=== PATIENT | female | born 1965 | race Caucasian/White ===

== ENCOUNTER → 2017-05-23 | Outpatient (CLI) | payer OTHER ==
--- NOTE | 2017-05-23 21:01 | MR ---
MRI CERVICAL SPINE: CLINICAL HISTORY: Neck pain and numbness per order. Headaches with neck pain radiating down right arm per patient. TECHNIQUE: Multiplanar, multisequence imaging of the cervical spine is performed without IV contrast. COMPARISON: Cervical spine x-ray February 25, 2011. FINDINGS: Sagittal images of the cervical spine show the craniocervical junction to appear within nor mal limits. The cervical and upper thoracic spinal cord is normal in course, caliber, and signal. V ertebral alignment is straightened. The vertebral body heights are normal. There is fairly moderate disc space narrowing with posterior disc herniations effacing anterior thecal sac at C4-C5 and C5-C6 levels on sagittal images. The bone marrow signal intensity is within normal limits. No significant s purring is seen. Sagittal images show lobulated 1.3 cm mucous retention cyst or polyp in inferior rig ht maxillary sinus on image #13. Axial images show the C2-C3 and C3-C4 levels to appear within normal limits. Axial images at C4-C5 level show broad-based left paracentral/foraminal disc protrusion effacing ante rolateral thecal sac up to ventral surface of spinal cord which is flattened and causing moderate to severe left-sided neural foraminal narrowing. There is mild to moderate right-sided neural foraminal narrowing due to smaller right foraminal disc protrusion component. Axial images at the C5-C6 level show lobulated broad-based posterior disc protrusion causing advanced right-sided neural foraminal narrowing on axial image 22. There is effacement of the anterolateral t hecal sac up to ventral surface of spinal cord which is flattened. There is moderate left-sided neura l foraminal narrowing felt present. Axial images at C6-C7 level show smaller left paracentral disc protrusion effacing anterolateral thec al sac on axial image 14, bilateral neural foramina are patent. Axial images at C7-T1 level are felt within normal limits. There is scattered nodularity throughout the thyroid including nodule approaching near 1 cm near left isthmus on axial image 4. IMPRESSION: 1. Straightening of cervical spine with degenerative changes C4-C5 and C5-C6 level causing significan t spinal canal effacement or stenosis but no abnormal cord signal currently and significant bilateral neural foraminal narrowing as detailed above. 2. Scattered thyroid nodules. Follow-up thyroid ultrasound is advised to further evaluate and charact erize.
== END | disposition home or self-care (01) ==
LOC: RADMRIMAIN 17:57
PROVIDERS: ATTEND Physician Assistant
DX: M99.71 Connective tissue and disc stenosis of intervertebral foramina of cervical region (principal); M47.22 Other spondylosis with radiculopathy, cervical region
CPT/HCPCS: 72141

== ENCOUNTER → 2017-06-26 | Outpatient (CLI) | payer OTHER ==
[2017-06-26 07:32] LABS: EKG EKG PERFORMED
[2017-06-26 07:51] LABS: Appearance,Urine Cloudy (Clear); Bacteria,Urine Moderate /hpf; Bilirubin,Urine Negative (Negative); Glucose,Urine (UA) Negative (Negative); Ketones,Urine Negative (Negative); Leukocyte Esterase,Urine Negative (Negative); Mucus,Urine Occasional /hpf; Nitrite,Urine Negative (Negative); Particle Count 12676; Protein,Urine Trace (Negative); RBC,Urine 2 /hpf (0-5); Specific Gravity,Urine 1.025 (1.001-1.035); Squamous Epithelial Cell,Urine 10 /hpf (0-4); UA Billing (MACRO vs. MICRO) MICRO; Urobilinogen,Urine <2.0 mg/dL (<2.0); WBC,Urine 5 /hpf (0-5)
[2017-06-26 07:54] LABS: Partial Thromboplastin Time 26.2 sec (22.0-30.0); Prothrombin Time 10.4 sec (9.0-12.0)
[2017-06-26 07:56] LABS: Basophils # (A) 0.1 k/uL (0-0.2); Basophils % (A) 1 %; CH 32.2; CHCM 33.8; Eosinophils # (A) 0.1 k/uL (0-0.7); Eosinophils % (A) 1 %; HCT 43.4 % (34.0-46.0); HDW 2.44; HGB 14.1 gm/dL (11.4-16.0); Luc % (Auto) 3; Lymphocytes # (A) 1.2 k/uL (1.0-4.8); Lymphocytes % (A) 20 %; MCH 31.2 pg (25.0-35.0); MCHC 32.5 g/dL (31.0-37.0); MCV 95.8 fL (80.0-100.0); Mean Platelet Volume 7.6; Monocytes # (A) 0.3 k/uL (0-1.0); Monocytes % (A) 5 %; Neutrophils # (A) 4.2 k/uL (1.3-7.7); Neutrophils % (A) 70 %; RBC 4.53 m/uL (3.80-5.40); RDW 14.7 % (11.5-15.5); WBC (Perox) 6.15
--- NOTE | 2017-06-26 07:56 | XR ---
EXAMINATION TYPE: XR chest 2V DATE OF EXAM: 06/26/2017 COMPARISON: NONE TECHNIQUE: PA and lateral views submitted. HISTORY: Preop for back surgery FINDINGS: The lungs are clear and there is no pneumothorax, pleural effusion, or focal pneumonia. IMPRESSION: 1. No acute process.
[2017-06-26 08:20] LABS: Anion Gap 12 mmol/L; Blood Urea Nitrogen 13 mg/dL (7-17); Calcium 9.6 mg/dL (8.4-10.2); Carbon Dioxide 25 mmol/L (22-30); Chloride 104 mmol/L (98-107); Glucose 117 mg/dL (74-99); Non-African American GFR(MDRD) >60 (>60 ml/min/1.73 sqM); Potassium 4.1 mmol/L (3.5-5.1); Sodium 141 mmol/L (137-145)
== END | disposition home or self-care (01) ==
LOC: LABPAT 07:01
PROVIDERS: ATTEND Orthopaedic Surgery Orthopaedic Surgery of the Spine
DX: Z01.810 Encounter for preprocedural cardiovascular examination (principal); Z01.818 Encounter for other preprocedural examination; M48.02 Spinal stenosis, cervical region; E04.1 Nontoxic single thyroid nodule; I45.81 Long QT syndrome
CPT/HCPCS: 71020; 80048; 81001; 83735; 84436; 84439; 84443; 85025; 85610; 85730; 93005

== ENCOUNTER → 2017-07-02 | Outpatient (CLI) | payer OTHER ==
--- NOTE | 2017-07-02 10:13 | ECHOF ---
Referral Reason:R94.31 [facility] ekg I45.81 lung qt syndrome MEASUREMENTS -------- HEIGHT: 162.6 cm WEIGHT: 81.6 kg BP: IVSd: 1.0 cm (0.6 - 1.1) LVIDd: 4.0 cm (3.9 - 5.3) LVPWd: 1.1 cm (0.6 - 1.1) IVSs: 1.5 cm LVIDs: 2.2 cm LVPWs: 1.6 cm Ao Diam: 2.6 cm (2.0 - 3.7) AV Cusp: 2.0 cm (1.5 - 2.6) LA Diam: 2.9 cm (2.7 - 3.8) MV EXCURSION: 10.022 mm (> 18.000) MV EF SLOPE: 126 mm/s (70 - 150) EPSS: 0.6 cm MV E Oz: 0.79 m/s MV DecT: 191 ms MV A Oz: 0.77 m/s MV E/A Ratio: 1.03 RAP: 5.00 mmHg RVSP: 27.74 mmHg FINDINGS -------- Sinus rhythm. This was a technically good study. The left ventricular size is normal. Left ventricular wall thickness is normal. Overall left ventricular systolic function is normal with, an EF between 55 - 60 %. The right ventricle is normal in size and function. The left atrium is normal in size. The right atrium is normal in size. The aortic valve is trileaflet, and appears structurally normal. No aortic stenosis or regurgitation. There is trace mitral regurgitation. Trace tricuspid regurgitation present. The right ventricular systolic pressure, as measured by Doppler, is 27.74mmHg. Pulmonic valve appears structurally normal. The aortic root size is normal. The pericardium is normal. CONCLUSIONS -------- 1. Sinus rhythm. 2. There is trace mitral regurgitation. 3. Trace tricuspid regurgitation present. 4. The right ventricular systolic pressure, as measured by Doppler, is 27.74mmHg. 5. Pulmonic valve appears structurally normal. 6. The aortic root size is normal. 7. The pericardium is normal. 8. This was a technically good study. 9. The left ventricular size is normal. 10. Left ventricular wall thickness is normal. 11. Overall left ventricular systolic function is normal with, an EF between 55 - 60 %. 12. The right ventricle is normal in size and function. 13. The left atrium is normal in size. 14. The right atrium is normal in size. 15. The aortic valve is trileaflet, and appears structurally normal. No aortic stenosis or regurgitation. [employer] SPECIALIST: Ana Cristina Wyatt RDCS
--- NOTE | 2017-07-02 11:31 | NM ---
EXAMINATION TYPE: NM stress cardiolite complete DATE OF EXAM: 07/02/2017 COMPARISON: NONE HISTORY: Abnormal EKG and long QT syndrome per order. TECHNIQUE: After the intravenous administration of 11.29 mCi Tc 99m Sestamibi - Rest images obtained 60 minutes post injection. The patient exercised using a TIFFANY protocol and 1 minute prior to peak exercise was injected with 28.3 mCi Tc 99m Sestamibi - Stress images obtained 30 minutes post inject ion. FINDINGS: Targeted heart rate was achieved during performance of the study. Review of stress and rest SPECT siobhan ges demonstrates no distinct perfusion abnormality. Gated analysis shows normal wall motion with an estimated left ventricular ejection fraction of 64 %. IMPRESSION: No scintigraphic evidence for reversible ischemia
--- NOTE | 2017-07-02 17:31 | EST ---
EXERCISE STRESS Dr. Bridges dictating the 2 cardiac stress test for the patient Vaishali 1. MMODL / IJN: [id number] /
--- NOTE | 2017-07-02 18:01 | EST ---
EXERCISE STRESS DATE OF SERVICE: 07/02/17. TYPE OF REPORT: Exercise stress test. INDICATIONS: Abnormal EKG. BASELINE HEART RATE: 72. BASELINE BLOOD PRESSURE: 135/78. MAXIMUM HEART RATE: 152. MAXIMUM BLOOD PRESSURE: 174/75 85% MPHR 143 100% MPHR 168. METS: 8.7. MAXIMUM STAGE REACHED: 3. TOTAL EXERCISE TIME: 7:15 minutes RESULTS: Baseline heart rate 72 beats per minute. Baseline blood pressure 135/78 mmHg. Baseline 12 lead ECG showed sinus rhythm with normal ST segments. Normal HI interval. Patient exercised on a Joshua protocol for 7 minutes 15 seconds achieving a peak heart rate of 148 beats per minute. Normal blood pressure response to exercise. There was an upsloping ST depression which became a horizontal ST depression of about 2 mm in the inferior lateral precordial leads. The patient did not experience any symptoms. No arrhythmias noted. IMPRESSION: Abnormal stress test with 2 mm horizontal depression during recovery without any symptoms. Normal heart rate and blood pressure response to exercise. Average exercise capacity of 7.5 minutes, 8.7 mets achieved, 90% of predicted maximum heart rate achieved. MMODL / IJN: [id number] /
== END | disposition home or self-care (01) ==
LOC: RADNMMAIN 08:22
PROVIDERS: ATTEND Family Medicine
DX: R94.39 Abnormal result of other cardiovascular function study (principal); I45.81 Long QT syndrome
CPT/HCPCS: 93017; 93306; 78452; A9500

== ENCOUNTER 2017-07-04 06:57 | Inpatient (IN) | payer OTHER ==
[2017-06-27 11:45] VITALS: BMI 30.9
[~2017-07-04 06:57] MED LIST: BACITRACIN 50,000 UNIT, POLYMYXIN B 500,000 UNIT in SODIUM CHLORIDE 0.9% IRRIGATIO 1,00... IRRIGATION ONE; HYDROmorphone 1 MG/ML 1 ML SYRINGE IVP PRN; ceFAZolin 2 GM in SODIUM CHLORIDE 0.9% 100 ML IVPB ONE; fentaNYL (PF) 50 MCG/ML 2 ML AMP IV PRN
[2017-07-04] MEDS: LACTATED RINGERS 1,000 ML IV SCH ×2 (07:40→21:10)
[2017-07-04] MEDS ORDERED: LIDOCAINE 1% 20 ML VIAL (10MG/ML) FOR IV START INTRADERMA ONE (07:40)
[2017-07-04] MEDS ORDERED: ONDANSETRON 4 MG/2 ML VIAL IVP ONE (07:50)
[2017-07-04] MEDS ORDERED: SUCCINYLCHOLINE CHLORIDE 100 MG/5 ML SYR IV ONE (08:28)
[2017-07-04] MEDS ORDERED: PHENYLEPHRINE-0.9% NACL SYG 1 MG/10 ML SYRINGE ONE (08:28)
[2017-07-04] MEDS ORDERED: DEXAMETHASONE SOD PHOS (MDV) 100 MG/10 ML VIAL ONE (08:28)
[2017-07-04] MEDS ORDERED: PROPOFOL 10 MG/ML 20 ML VIAL IV ONE (08:28)
[2017-07-04] MEDS ORDERED: HYDROmorphone (PF) 1 MG/ML ONE (08:28)
[2017-07-04] MEDS ORDERED: MIDAZOLAM 2 MG/2 ML VIAL ONE (08:28)
[2017-07-04] MEDS ORDERED: fentaNYL (PF) 50 MCG/ML 2 ML AMP ONE (08:28)
[2017-07-04] MEDS ORDERED: ePHEDrine SULFATE/0.9% NACL/PF 50 MG/5 ML SYRINGE IV ONE (08:28)
[2017-07-04] MEDS ORDERED: LIDOCAINE 1% INJ 10MG/ML (20 ML MDV) ONE (08:28)
[2017-07-04] MEDS ORDERED: LIDOCAINE 0.5%-EPI 1:200,000 50 ML VIAL SQ ONE (09:06)
[2017-07-04] MEDS ORDERED: GELATIN SPONGE,ABSORB (LARGE) 1 EACH SPONGE TOPICAL ONE (09:12)
[2017-07-04] MEDS ORDERED: THROMBIN (BOVINE) 5,000 UNIT VIAL TOPICAL ONE (09:13)
--- NOTE | 2017-07-04 09:46 | XR ---
EXAMINATION TYPE: XR cervical spine 1V DATE OF EXAM: 07/04/2017 COMPARISON: NONE HISTORY: Intraoperative localization TECHNIQUE: Crosstable lateral view cervical spine Localization device is at the anterior C5-6 disc space.
[2017-07-04] MEDS ORDERED: LACTATED RINGERS 1,000 ML IV ONE (10:28)
--- NOTE | 2017-07-04 10:36 | XR ---
EXAMINATION TYPE: XR cervical spine 1V DATE OF EXAM: 07/04/2017 COMPARISON: NONE HISTORY: Postoperative evaluation TECHNIQUE: Crosstable lateral view of the cervical spine submitted. FINDINGS: Changes of ACDF are noted at C4-5 and C5-6. Anterior fixation plate and screws are in place . Intervertebral body stabilizer is noted. Alignment is anatomic. IMPRESSION: Postoperative alignment is felt to be anatomic.
[2017-07-04] MEDS ORDERED: DIAZEPAM 5 MG TAB PO PRN (10:42)
[2017-07-04] MEDS ORDERED: MAGNESIUM HYDROXIDE 2,400 MG/10 ML CUP PO PRN (10:42)
[2017-07-04] MEDS ORDERED: BENZOCAINE/MENTHOL LOZENG 1 EACH LOZENGE MUCOUS MEM PRN (10:42)
--- NOTE | 2017-07-04 10:42 | P.OP ---
Date of Procedure: 07/04/17 Preoperative Diagnosis: Severe cervical stenosis C4 5 C5 6 Right upper extremity radiculopathy with weakness Herniated nucleus pulposus C4 5 C5 6 Degenerative disc disease C4 5 C5 6 Postoperative Diagnosis: Same Anesthesia: GETA Pathology: none sent Condition: stable Disposition: PACU Description of Procedure: BRIEF OPERATIVE NOTE Preoperative Diagnosis:Severe cervical stenosis C4 5 C5 6, herniated nucleus pulposis C4 5 C5 6, right upper extremity radiculopathy with weakness, neck pain , degenerative disc disease Postoperative Diagnosis: Same Procedure: Anterior cervical decompression with discectomy and fusion C4 5 C5 6 Placement of interbody graft C4 5 C5 6 Application of anterior cervical plate C4 5 6 Surgeon: Dr. Salmon Sausage Cutter: Ede FERREIRA who is present throughout the entire the case persistence during positioning, dissection, exposure, visualization, and all crucial elements of the case as well as closure. Anesthesia: General anesthesia per Dr. Grullon Estimated blood loss: Approximately 75 mL Complications: None apparent Components implanted: K2M [place] anterior cervical plate system with Vikos interbody allograft bone graft and 1 mL of DBX bone putty Disposition: To recovery room in good stable condition. OPERATIVE INDICATIONS The patient has had long-standing issues in their neck and upper extremities. She is having worsening symptoms particularly at her right upper extremity with pain and weakness. She is found have disc herniation C4 5 and C5 6 with severe stenosis which correlated well with her neck and upper extremity radiculopathy. The patient has been through conservative treatment. She is not having any prolonged benefit despite aggressive conservative treatment. She was being affected her daily activities and work. We discussed various treatment options including surgery, and the patient wishes to proceed with surgery We discussed the risk, patient's alternatives and benefits of surgery including but not limited to, risk of bleeding risk of infection, risk of need for further surgery , risk of decreased, loss of motion, muscle function, malunion nonunion, hardware failure, nerve damage, paralysis, heart attack, and . OPERATIVE SUMMARY After discussing all the risks, patient alternatives and benefits at length, the patient elected to proceed with surgical intervention, signed informed consent, and presented for their procedure. The patient was seen and examined in the preoperative holding area and the surgical site was marked. The patient was given antibiotics and brought to the operating room. The patient was positioned on the operating room table in a supine position being careful to pad any bony prominences and pressure points. The patient was sedated and intubated by anesthesia in standard fashion. Once the airway and C- spine were stabilized the patient's arms were padded and tucked at her side, with her shoulders gently taped. The head was placed in a donut pad with the neck in good neutral alignment and position. We were careful to maintain the patient's cervical spine and good neutral alignment and position throughout. The patient was prepped and draped in a normal standard fashion. An appropriate timeout and keystone protocol performed. We were able to proceed with the surgery. The local wound area was infiltrated with local anesthetic on the right at C5. An incision was made transversely approximately 2-1/2 cm over the appropriate levels at C5. Dissection was taken down subcutaneously to the level of the platysma which was split in line with its fibers. Dissection was taken with a carotid approach, with the trachea and esophagus medial and the carotid sheath laterally. We dissected down to the anterior surface of the vertebral bodies of C4 5 6. Intraoperative x-ray was taken which showed a marker at the appropriate level at C5 6. With the appropriate level positively confirmed, we were able to proceed with discectomy at the appropriate levels, starting at C4 5 and then working at C5 6. All of the operative levels were exposed appropriately. The patient had all their twitches back, and there was no evidence of recurrent laryngeal issue. The wound was copiously irrigated and suctioned dry as had been done periodically throughout the case. At the appropriate level/levels, I established an annulotomy with an 11 blade scalpel. The patient had severe disc height loss. There is small osteophytes anteriorly which were removed. A discectomy was performed with a combination of pituitary rongeurs, curettes, a high-speed bur, and Kerrison rongeurs. The posterior longitudinal ligament was taken down as were any posterior osteophytes. There was severe evidence of stenosis and disc herniation which was remedied with the decompression. This gave good central and bilateral foraminal decompression. There is no evidence of any dural tear or leak. The endplates were prepared with a high-speed bur. With the endplates in good parallel position, I was able to size for the appropriate size interbody graft. The wound was irrigated and suctioned dry the graft was prepared and malleted into position. It had good alignment and position with the anterior surface flush with the anterior surface of the vertebral bodies. This was done similarly the appropriate levels first at C4 5 and then at C5 6. With the grafts intact, I was able to measure and contour and appropriate sized plate. The plate was positioned at the midline over the appropriate levels at C4 5 and 6. Screw holes were established with a hand drill and drill guide. Screws were placed in good alignment and position with excellent bony purchase. They were seated under the locking device. The construct was checked and found to be stable. Intraoperative x-ray was taken which showed good alignment and position of the implants at the appropriate levels at C4 5 and 6. There was no evidence of any dural tear or leak. Good hemostasis was maintained. The wound was copiously irrigated and suctioned dry as had been done periodically throughout the case. The platysma was closed with absorbable suture. The subcutaneous tissue was closed. The subcuticular tissue was closed with absorbable suture. The wound was cleaned and dried and dressed appropriately. A soft cervical collar was placed appropriately. The patient was woken up by anesthesia, extubated, transferred back gently to their hospital bed and brought to the recovery room in good stable condition. The patient will be admitted to the hospital for appropriate postoperative care , medical management and monitoring. We will continue to follow them closely about the postoperative course.
[2017-07-04] MEDS ORDERED: HYDROcodone/APAP 5-325MG 1 EACH TAB PO PRN (10:43)
[2017-07-04 11:18] VITALS: RESP 16
[2017-07-04] MEDS: ONDANSETRON 4 MG/2 ML VIAL IVP PRN ×2 (12:09→15:02)
[2017-07-04] MEDS: METOCLOPRAMIDE 10 MG TAB PO PRN ×2 (13:33→21:20)
[2017-07-04] MEDS: HYDROmorphone 1 MG/ML 1 ML SYRINGE IVP PRN ×3 (13:37→21:18)
[2017-07-04] MEDS: SODIUM CHLORIDE 0.9% 1,000 ML IV SCH (17:28)
[2017-07-04] MEDS: ceFAZolin 2 GM in SODIUM CHLORIDE 0.9% 100 ML IVPB SCH (17:28)
[2017-07-05] MEDS: ceFAZolin 2 GM in SODIUM CHLORIDE 0.9% 100 ML IVPB SCH (00:13)
[2017-07-05] MEDS: SODIUM CHLORIDE 0.9% 1,000 ML IV SCH (00:14)
[2017-07-05] MEDS: HYDROcodone/APAP 10-325MG 1 EACH TAB PO PRN ×2 (06:17→09:17)
[2017-07-05] MEDS ORDERED: SENNOSIDES-DOCUSATE SODIUM 1 EACH TAB PO SCH (09:00)
--- NOTE | 2017-07-05 09:28 | P.DS ---
Providers Date of admission: 07/04/17 06:57 Attending physician: Rosa Salmon Primary care physician: Marbella Dee [facility] Course: The patient presented on the day of admission as per her operative note. She underwent anterior cervical discectomy with decompression and fusion at C4 5 and C5 6 for her severe cervical stenosis with herniated nucleus pulposis and upper extremity radiculopathy. She feels her arms are doing well today but she is having pain at the base of her neck. She is also complaining of some pain at her lower anterior ribs bilaterally with movement. She denies any shortness of breath or any nausea or vomiting. She feels the pain is primarily when she tries to move around in her bed and feels so to muscular pain at her upper abdomen and lower ribs anteriorly. Physical Exam The incision site is clean dry and intact. There is no erythema no drainage. There is no purulence no evidence of infection. Her neck is soft and supple and the dressing is clear Abdomen soft and nontender. Her lower ribs are nontender to palpation. She has some pain with trying to mobilize it appears to be primarily muscular in nature. Chest has good excursion with deep inspiration and expiration. The patient has active and passive range of motion intact at the upper and lower extremities. There is no acute change in neurologic status. Hospital Course Postoperative day #1 status post anterior cervical decompression discectomy and fusion C4 5 C5 6 for severe cervical stenosis with herniated nucleus pulposis with upper extremity radiculopathy The patient has been making good progress postoperatively in terms of her upper extremities and her radicular symptoms. They have completed the prophylactic antibiotics without any signs or symptoms of infection. The patient has been able to advance their diet, and is tolerating diet adequately. The pain was initially controlled with IV medications and is now controlled appropriately with oral medications. The patient has been able to increase their mobilization. She is having some pain at her lower anterior ribs and upper abdomen which seems to be primarily muscular in nature. She's not having any nausea or vomiting or any specific chest pain. She denies any shortness breath and I do not think that this requires further workup seems likely be due to muscular strain and should resolve expectantly. The patient has progressed appropriately. I think they are in good stable condition for discharge today. They will be sent home with appropriate prescriptions. I answered their questions to the best of my ability in a language that they can understand and they are agreeable with the plan. They will follow up as directed in approximately 2 weeks or sooner if she is having any problems. Patient Condition at Discharge: Good Plan - Discharge Summary New Discharge Prescriptions: New HYDROcodone/APAP 10-325MG [Trosper 10-325] 1 tab PO Q6H PRN #90 tab PRN Reason: Pain No Action HYDROcodone/APAP 10-325MG [Trosper 10-325] 1 tab PO Q6H PRN PRN Reason: Pain Discharge Medication List HYDROcodone/APAP 10-325MG [Trosper 10-325] 1 tab PO Q6H PRN 06/27/17 [History] HYDROcodone/APAP 10-325MG [Trosper 10-325] 1 tab PO Q6H PRN #90 tab 07/05/17 [Rx] Follow up Appointment(s)/Referral(s): Rosa Salmon DO [Doctor of Osteopathic Medicine] - 2 Weeks (With Ede Coppola at Dr. Salmon's office) Activity/Diet/Wound Care/Special Instructions: Avoid heavy or rigorous activity. May ambulate to tolerance. No overhead work. Avoid heavy lifting. May use soft collar for comfort. Keep site clean. May shower with waterproof Tegaderm intact. On Sunday May shower with area uncovered at least Steri- Strips intact and allow them to fray off on their own. Do not soak in a tub. Discharge Disposition: HOME SELF-CARE
[2017-07-05 15:00] VITALS: BP 108/72; PULSE 94; TEMP 98
== END 2017-07-05 12:40 | disposition home or self-care (01) | DRG 473 ==
LOC: 2ORMAIN 06:57 → 3SUR 10:48
PROVIDERS: ADMIT Orthopaedic Surgery Orthopaedic Surgery of the Spine; ATTEND Orthopaedic Surgery Orthopaedic Surgery of the Spine
PROC: 0RT30ZZ Resection of Cervical Vertebral Disc, Open Approach (ICD-10-PCS; 2017-07-04)
PROC: 0RG20K0 Fusion of 2 or more Cervical Vertebral Joints with Nonautologous Tissue Substitute, Anterior Approach, Anterior Column, Open Approach (ICD-10-PCS; 2017-07-04)
PROC: 4A1104G Monitoring of Peripheral Nervous Electrical Activity, Intraoperative, Open Approach (ICD-10-PCS; 2017-07-04)
PROC: 0RG20A0 Fusion of 2 or more Cervical Vertebral Joints with Interbody Fusion Device, Anterior Approach, Anterior Column, Open Approach (ICD-10-PCS; principal; 2017-07-04 08:30)
DX: M48.02 Spinal stenosis, cervical region (principal); M50.321 Other cervical disc degeneration at C4-C5 level; M50.122 Cervical disc disorder at C5-C6 level with radiculopathy
CPT/HCPCS: 72020; 86850; 86900; 86901

== ENCOUNTER → 2018-01-24 | Outpatient (CLI) | payer OTHER ==
--- NOTE | 2018-01-24 22:54 | MR ---
MRI CERVICAL SPINE: CLINICAL HISTORY: Cervicalgia, weakness, sprain of ligaments, status post arthrodesis all per order. Neck pain radiating across shoulders down right arm after slip and fall injury on new years, history of surgery June 2017. TECHNIQUE: Multiplanar, multisequence imaging of the cervical spine is performed without and with IV contrast, 8 cc of gadolinium was given intravenously. COMPARISON: MRI cervical spine June 02 2017. FINDINGS: Coronal images redemonstrate slight levoconvex scoliotic curvature centered in the upper th oracic spine. Sagittal images of the cervical spine show the craniocervical junction to remain within normal limits. The cervical and upper thoracic spinal cord remains normal in caliber and signal. V ertebral alignment is stable and straightened. There is new artifact from anterior fusion plate and a rtificial disc material C4-C6 levels. New tiny posterior disc herniation is seen on sagittal images a t C6/C7 level effacing anterior thecal sac sagittal image 7. The vertebral body and intravertebral di sk heights are normal above and below surgical levels. The bone marrow signal intensity is within no rmal limits. No suspicious postcontrast enhancement is seen. Generalized AP diameter narrowing of spi nal canal is present in the cervical spine up to C6 level no significant change from prior. Axial images show the C2-C3 level to remain within normal limits. Axial images at C3-C4 level show new loculated posterior disc protrusion effacing the anterior thecal sac and adnexa measures 38 and causing asymmetric mild to moderate left-sided neural foraminal narro wing. Right central foramen is patent. Axial images at C4-C5 level showed persistent left paracentral low intense signal presumed spurring e ffacing left anterolateral thecal sac and causing asymmetric moderate left-sided neural foraminal christine rowing on axial image 30. A central foramen is patent. Axial images at C5-C6 level show artifact from surgical change. There is persistent [id number] bilateral neural foraminal narrowing likely from marginal spurring. Axial images at C6-C7 level show new left paracentral disc protrusion effaces the anterolateral theca l sac and extending/14, bilateral neuroforamina are patent. Axial images at C7-T1 level are felt within normal limits. There is heterogeneous thyroid with scattered small nodules, better seen on current study, greater th an 1 cm nodule left thyroid may be present axial image 8. Follow-up advised. IMPRESSION: Interval surgery C4-C6 level with stable and satisfactory alignment. New Degenerative josé luis nges C3-C4 and C6-C7 level noted. Thyroid nodularity, advise thyroid ultrasound follow-up to better e valuate and characterize. Other findings as detailed above.
== END | disposition home or self-care (01) ==
LOC: RADMRIMAIN 19:54
PROVIDERS: ATTEND Orthopaedic Surgery Orthopaedic Surgery of the Spine
DX: M48.02 Spinal stenosis, cervical region (principal); M99.71 Connective tissue and disc stenosis of intervertebral foramina of cervical region; M50.21 Other cervical disc displacement, high cervical region; M47.812 Spondylosis without myelopathy or radiculopathy, cervical region; Z98.890 Other specified postprocedural states
CPT/HCPCS: 72156; A9581

== ENCOUNTER 2018-08-11 20:26 | Emergency (ER) | payer OTHER ==
[2018-08-11 20:40] VITALS: BP 142/90; PULSE 66; RESP 18; TEMP 98.5
[2018-08-11 21:35] LABS: Basophils # (A) 0.1 k/uL (0-0.2); Basophils % (A) 1 %; Eosinophils # (A) 0.2 k/uL (0-0.7); Eosinophils % (A) 3 %; HGB 13.8 gm/dL (11.4-16.0); Lymphocytes # (A) 1.9 k/uL (1.0-4.8); Lymphocytes % (A) 27 %; MCH 31.2 pg (25.0-35.0); MCHC 33.7 g/dL (31.0-37.0); MCV 92.7 fL (80.0-100.0); Mean Platelet Volume 7.2; Monocytes # (A) 0.4 k/uL (0-1.0); Monocytes % (A) 5 %; Neutrophils # (A) 4.5 k/uL (1.3-7.7); Neutrophils % (A) 63 %; Platelet Count 329 k/uL (150-450); RBC 4.43 m/uL (3.80-5.40); WBC 7.1 k/uL (3.8-10.6)
[2018-08-11 21:42] LABS: ALT 27 U/L (9-52); AST 25 U/L (14-36); Albumin 4.3 g/dL (3.5-5.0); Alkaline Phosphatase 76 U/L (38-126); Anion Gap 10 mmol/L; Blood Urea Nitrogen 15 mg/dL (7-17); Calcium 9.7 mg/dL (8.4-10.2); Carbon Dioxide 24 mmol/L (22-30); Chloride 108 mmol/L (98-107); Glucose 86 mg/dL (74-99); Potassium 4.3 mmol/L (3.5-5.1); Sodium 142 mmol/L (137-145); Total Bilirubin 0.4 mg/dL (0.2-1.3); Total Protein 7.5 g/dL (6.3-8.2)
[2018-08-11 21:45] LABS: Appearance,Urine Clear (Clear); Bilirubin,Urine Negative (Negative); Blood,Urine Negative (Negative); Color,Urine Yellow; Glucose,Urine (UA) Negative (Negative); Ketones,Urine Negative (Negative); Leukocyte Esterase,Urine Negative (Negative); Nitrite,Urine Negative (Negative); Protein,Urine Negative (Negative); Specific Gravity,Urine 1.012 (1.001-1.035); Urobilinogen,Urine <2.0 mg/dL (<2.0)
--- NOTE | 2018-08-11 22:00 | CT ---
EXAMINATION TYPE: CT abdomen pelvis w con DATE OF EXAM: 08/11/2018 COMPARISON: None HISTORY: Pain by csection scar x couple weeks. CT DLP: 938.7 mGycm Automated exposure control for dose reduction was used. TECHNIQUE: Helical acquisition of images was performed from the lung bases through the pelvis. CONTRAST: Performed without Oral Contrast and with IV Contrast, patient injected with 100 mL of Isovue 300. FINDINGS: Lung bases are clear. There is no pleural effusion. Heart size is normal. There is no pericardial eff usion. There are small linear density at the left lung base consistent with subsegmental atelectasis. Liver spleen pancreas gallbladder appear normal. Bile ducts are not dilated. Stomach appears normal. There is no adrenal mass. Kidneys show satisfactory contrast opacification. There is no hydronephrosi s. Ureters are not dilated. There is no retroperitoneal adenopathy. Bladder distends smoothly. There is no inguinal hernia. Uterus is anteverted. There is posterior fusion surgery at L5-S1. There is no mesenteric edema or adenopathy. There is no intestinal wall thickening. There are no dilated loops. A ppendix appears normal. There is umbilical hernia that contains fat. There is no ascites. There is no sign of free air. incision shows no fluid accumulation. IMPRESSION: NEGATIVE CT SCAN ABDOMEN AND PELVIS.
--- NOTE | 2018-08-11 22:32 | ED ---
General Adult HPI - General Source: patient, RN notes reviewed Mode of arrival: ambulatory Limitations: no limitations <Jamil Alves P - Last Filed: 08/11/18 22:59> <Kadie Betts P - Last Filed: 08/12/18 00:56> - General Chief complaint: Skin/Abscess/Foreign Body Stated complaint: Abd abscess (Med Exp) Time Seen by Provider: 08/11/18 20:45 - History of Present Illness Initial comments: 53-year-old female presents to the emergency department for a chief complaint of possible abscess oversees scar incision. Patient states this has been present for about one week. She states she was seen in urgent care 2 days ago and diagnosed with an incisional hernia. She states she was seen there today and diagnosed with an abscess. Patient was given IM Ancef there. She states that about 2 hours ago the area started draining. She denies fevers or chills at home. She does admit to mild right lower quadrant abdominal pain. She denies nausea or vomiting. She denies any difficulty urinating or pain with urination. Patient has no other complaints at this time including shortness of breath, chest pain, nausea or vomiting, headache, or visual changes. (Jamil Alves) - Related Data Home Medications Medication Instructions Recorded Confirmed HYDROcodone/APAP 10-325MG [[place] 1 tab PO Q6H PRN 06/27/17 07/04/17 10-325] Previous Rx's Medication Instructions Recorded HYDROcodone/APAP 10-325MG [[place] 1 tab PO Q6H PRN #90 tab 07/05/17 10-325] Cephalexin [Keflex] 500 mg PO Q8H 10 Days cap 08/11/18 Sulfamethox-Tmp 800-160Mg [Bactrim 1 tab PO Q12HR #20 tab 08/11/18 DS 800-160 mg] Allergies Allergy/AdvReac Type Severity Reaction Status Date / Time diclofenac AdvReac GI upset Verified 08/11/18 20:39 Review of Systems ROS Other: All systems not noted in ROS Statement are negative. <Jamil Alves P - Last Filed: 08/11/18 22:59> ROS Other: All systems not noted in ROS Statement are negative. <Kadie Betts P - Last Filed: 08/12/18 00:56> ROS Statement: Those systems with pertinent positive or pertinent negative responses have been documented in the HPI. Past Medical History Past Medical History: Musculoskeletal Disorder Additional Past Medical History / Comment(s): MURMUR, HAD CHICKEN POX AT AGE 26 History of Any Multi-Drug Resistant Organisms: None Reported Past Surgical History: Back Surgery, Section, Uterine Ablation Additional Past Surgical History / Comment(s): oophorectomy, back surg. x 2, 5- 23-16 REVISON LAMINECTOMY/DECOMPRESSION L5-S1, LT KNEE SX Past Anesthesia/Blood Transfusion Reactions: Motion Sickness Past Psychological History: No Psychological Hx Reported Smoking Status: Never smoker Past Alcohol Use History: Occasional Past Drug Use History: None Reported - Past Family History Mother Family Medical History: CVA/TIA, Diabetes Mellitus Father History Unknown: Yes <Jamil Alves P - Last Filed: 08/11/18 22:59> General Exam Limitations: no limitations General appearance: alert, in no apparent distress Head exam: Present: atraumatic, normocephalic, normal inspection Eye exam: Present: normal appearance, PERRL, EOMI. Absent: scleral icterus, conjunctival injection, periorbital swelling ENT exam: Present: normal exam, mucous membranes moist Neck exam: Present: normal inspection. Absent: tenderness, meningismus, lymphadenopathy Respiratory exam: Present: normal lung sounds bilaterally. Absent: respiratory distress, wheezes, rales, rhonchi, stridor Cardiovascular Exam: Present: regular rate, normal rhythm, normal heart sounds. Absent: systolic murmur, diastolic murmur, rubs, gallop, clicks GI/Abdominal exam: Present: soft, tenderness (Mild tenderness in the right lower quadrant without rebound or guarding), normal bowel sounds. Absent: distended, guarding, rebound, rigid Neurological exam: Present: alert, oriented X3, CN II-XII intact Psychiatric exam: Present: normal affect, normal mood Skin exam: Present: other (There is a small 5 mm open area along incision line with purulent drainage.) <Jamil Alves P - Last Filed: 08/11/18 22:59> Vital Signs 08/11/18 20:36 Temperature 98.5 F Pulse Rate 66 Respiratory 18 Rate Blood Pressure 142/90 O2 Sat by Pulse 99 Oximetry Medical Decision Making - Lab Data Result diagrams: 08/11/18 21:20 08/11/18 21:20 <Jamil Alves P - Last Filed: 08/11/18 22:59> - Lab Data Result diagrams: 08/11/18 21:20 08/11/18 21:20 <Kadie Betts - Last Filed: 08/12/18 00:56> - Medical Decision Making 53-year-old female presents to the emergency department for a chief complaint of possible abscess times one week. Patient was referred here by urgent care for abscess. On exam there is a 5 mm open area along incision scar. scar is 30 years old. There is mild erythema surrounding this area and purulent drainage. Because patient has had a history of abdominal pain in the past 3 weeks blood work and CAT scan were ordered. CBC CMP and urinalysis are unremarkable. CT shows a incision without fluid accumulation. There is an umbilical hernia that contains fat. Overall negative computed tomography scan abdomen and pelvis. I did numb the area with lidocaine and use forceps to explore the area. No loculations present. No tracking identified. Patient likely has a small opening of her scar. She is a mild surrounding erythema likely cellulitis. She will be treated with Keflex and Bactrim. She will follow up with primary care and general surgery. She will return if she has any worsening symptoms. (Jamil Alves) I personally saw and examined the patient. I reviewed and agree with the mid- level provider findings including all diagnostic interpretations and treatment plans as written unless otherwise stated. I was present for graham portions of any procedures performed. (Kadie Betts) - Lab Data Lab Results 08/11/18 08/11/18 08/11/18 Range/Units 21:20 21:20 21:25 WBC 7.1 (3.8-10.6) k/uL RBC 4.43 (3.80-5.40) m/uL Hgb 13.8 (11.4-16.0) gm/dL Hct 41.0 (34.0-46.0) % MCV 92.7 (80.0-100.0) fL MCH 31.2 (25.0-35.0) pg MCHC 33.7 (31.0-37.0) g/dL RDW 14.0 (11.5-15.5) % Plt Count 329 (150-450) k/uL Neutrophils % 63 % Lymphocytes % 27 % Monocytes % 5 % Eosinophils % 3 % Basophils % 1 % Neutrophils # 4.5 (1.3-7.7) k/uL Lymphocytes # 1.9 (1.0-4.8) k/uL Monocytes # 0.4 (0-1.0) k/uL Eosinophils # 0.2 (0-0.7) k/uL Basophils # 0.1 (0-0.2) k/uL Sodium 142 (137-145) mmol/L Potassium 4.3 (3.5-5.1) mmol/L Chloride 108 H (98-107) mmol/L Carbon Dioxide 24 (22-30) mmol/L Anion Gap 10 mmol/L BUN 15 (7-17) mg/dL Creatinine 0.61 (0.52-1.04) mg/dL Est GFR (CKD-EPI)AfAm >90 (>60 ml/min/1.73 sqM) Est GFR (CKD-EPI)NonAf >90 (>60 ml/min/1.73 sqM) Glucose 86 (74-99) mg/dL Calcium 9.7 (8.4-10.2) mg/dL Total Bilirubin 0.4 (0.2-1.3) mg/dL AST 25 (14-36) U/L ALT 27 (9-52) U/L Alkaline Phosphatase 76 (38-126) U/L Total Protein 7.5 (6.3-8.2) g/dL Albumin 4.3 (3.5-5.0) g/dL Urine Color Yellow Urine Appearance Clear (Clear) Urine pH 5.0 (5.0-8.0) Ur Specific [place] 1.012 (1.001-1.035) Urine Protein Negative (Negative) Urine Glucose (UA) Negative (Negative) Urine Ketones Negative (Negative) Urine Blood Negative (Negative) Urine Nitrite Negative (Negative) Urine Bilirubin Negative (Negative) Urine Urobilinogen <2.0 (<2.0) mg/dL Ur Leukocyte Esterase Negative (Negative) Urine HCG, Qual (Not Detectd) 08/11/18 Range/Units 21:25 WBC (3.8-10.6) k/uL RBC (3.80-5.40) m/uL Hgb (11.4-16.0) gm/dL Hct (34.0-46.0) % MCV (80.0-100.0) fL MCH (25.0-35.0) pg MCHC (31.0-37.0) g/dL RDW (11.5-15.5) % Plt Count (150-450) k/uL Neutrophils % % Lymphocytes % % Monocytes % % Eosinophils % % Basophils % % Neutrophils # (1.3-7.7) k/uL Lymphocytes # (1.0-4.8) k/uL Monocytes # (0-1.0) k/uL Eosinophils # (0-0.7) k/uL Basophils # (0-0.2) k/uL Sodium (137-145) mmol/L Potassium (3.5-5.1) mmol/L Chloride (98-107) mmol/L Carbon Dioxide (22-30) mmol/L Anion Gap mmol/L BUN (7-17) mg/dL Creatinine (0.52-1.04) mg/dL Est GFR (CKD-EPI)AfAm (>60 ml/min/1.73 sqM) Est GFR (CKD-EPI)NonAf (>60 ml/min/1.73 sqM) Glucose (74-99) mg/dL Calcium (8.4-10.2) mg/dL Total Bilirubin (0.2-1.3) mg/dL AST (14-36) U/L ALT (9-52) U/L Alkaline Phosphatase (38-126) U/L Total Protein (6.3-8.2) g/dL Albumin (3.5-5.0) g/dL Urine Color Urine Appearance (Clear) Urine pH (5.0-8.0) Ur Specific [place] (1.001-1.035) Urine Protein (Negative) Urine Glucose (UA) (Negative) Urine Ketones (Negative) Urine Blood (Negative) Urine Nitrite (Negative) Urine Bilirubin (Negative) Urine Urobilinogen (<2.0) mg/dL Ur Leukocyte Esterase (Negative) Urine HCG, Qual Not Detected (Not Detectd) Disposition Is patient prescribed a controlled substance at d/c from ED?: No Time of Disposition: 23:00 <Jamil Alves P - Last Filed: 08/11/18 22:59> <Kadie Betts P - Last Filed: 08/12/18 00:56> Clinical Impression: Cellulitis Disposition: HOME SELF-CARE Condition: Good Instructions: Cellulitis (ED) Additional Instructions: Please take antibiotics as directed. Please follow-up with primary care and general surgery in 1-2 days. Return to the emergency department if you have any worsening symptoms. Prescriptions: Cephalexin [Keflex] 500 mg PO Q8H 10 Days cap Sulfamethox-Tmp 800-160Mg [Bactrim DS 800-160 mg] 1 tab PO Q12HR #20 tab Referrals: Marbella Dee DO [Primary Care Provider] - 1-2 days Lawrence Dubose MD [STAFF PHYSICIAN] - 1-2 days
[2018-08-11] MEDS ORDERED: LIDOCAINE 1% INJ 10MG/ML (20 ML MDV) SQ ONE (23:04)
== END 2018-08-11 23:10 | disposition home or self-care (01) ==
LOC: EC 20:26
DX: L03.311 Cellulitis of abdominal wall (principal); Z88.6 Allergy status to analgesic agent; Z98.890 Other specified postprocedural states
CPT/HCPCS: 36415; 80053; 85025; 81003; 81025; 87040; 74177; 99284; J2001; Q9967

== ENCOUNTER → 2018-08-14 | Outpatient (CLI) | payer OTHER ==
--- NOTE | 2018-08-14 09:43 | US ---
EXAMINATION TYPE: US abdomen complete DATE OF EXAM: 08/14/2018 COMPARISON: CT CLINICAL HISTORY: K43.2 Incisional hernia. Patient stated has had pus emitting from pencil head size reddened area mid C section scar x 3 weeks and sought treatment at urgent care, then EC department fo r same symptoms; patient stated surgeon wanted abdomen US and patient was aware of CT showing umbilic al hernia. EXAM MEASUREMENTS: Liver Length: 13.1 cm Gallbladder Wall: 0.2 cm CBD: 0.6 cm Spleen: 11.5 cm Right Kidney: 10.1 x 5.8 x 5.0 cm Left Kidney: 10.6 x 5.1 x 4.7 cm Pancreas: wnl Liver: fatty Gallbladder: wnl Evidence for sonographic Painter's sign: no CBD: wnl Spleen: wnl Right Kidney: wnl Left Kidney: wnl Upper IVC: wnl Abd Aorta: wnl Umbilicus: umbilical hernia is noted as seen per CT At patient 's area of concern at infected raised area at midline Pelvic C Section Scar: small,complex , irregular hypoechoic area is noted posterior to raised reddened skin opening at scar and size = 0.8 x 0.8 x 0.7cm. The intrahepatic portion of the IVC and proximal abdominal aorta are within normal limits. There i s no evidence of cholelithiasis. Common bile duct is unremarkable. The visualized portions of the p ancreas are homogenous. The spleen is unremarkable. Kidneys are symmetric and free of hydronephrosi s. No renal lesions are seen. IMPRESSION: 1. Hepatic steatosis 2. Fat-containing umbilical hernia. 3. No evidence for drainable collection at the scar.
== END | disposition home or self-care (01) ==
LOC: RADUSWWP 07:34
PROVIDERS: ATTEND Family Medicine
DX: K76.0 Fatty (change of) liver, not elsewhere classified (principal); K42.9 Umbilical hernia without obstruction or gangrene
CPT/HCPCS: 76700

== ENCOUNTER → 2018-08-30 | Outpatient (CLI) | payer OTHER ==
[2018-08-30 08:57] LABS: Basophils % (A) 1 %; Eosinophils # (A) 0.1 k/uL (0-0.7); Eosinophils % (A) 3 %; HCT 40.3 % (34.0-46.0); HGB 13.4 gm/dL (11.4-16.0); Lymphocytes # (A) 1.1 k/uL (1.0-4.8); Lymphocytes % (A) 22 %; MCH 30.8 pg (25.0-35.0); MCHC 33.2 g/dL (31.0-37.0); MCV 92.8 fL (80.0-100.0); Mean Platelet Volume 6.9; Monocytes # (A) 0.3 k/uL (0-1.0); Monocytes % (A) 7 %; Neutrophils # (A) 3.5 k/uL (1.3-7.7); Neutrophils % (A) 67 %; Platelet Count 364 k/uL (150-450); RBC 4.34 m/uL (3.80-5.40); RDW 13.7 % (11.5-15.5); WBC 5.3 k/uL (3.8-10.6)
== END | disposition home or self-care (01) ==
LOC: LABWHC1 08:18
PROVIDERS: ATTEND Surgery
DX: Z01.812 Encounter for preprocedural laboratory examination (principal); K43.2 Incisional hernia without obstruction or gangrene
CPT/HCPCS: 36415; 85025; 86850; 86900; 86901

== ENCOUNTER 2018-09-04 06:40 | Day surgery (SDC) | payer OTHER ==
[2018-08-30 09:03] VITALS: BMI 30.9
[~2018-09-04 06:40] MED LIST changes: -BACITRACIN 50,000 UNIT, POLYMYXIN B 500,000 UNIT in SODIUM CHLORIDE 0.9% IRRIGATIO 1,00... IRRIGATION ONE; +DEXAMETHASONE SOD PHOSPHATE 10 MG/ML 1 ML VIAL IV ONE; +HEPARIN SODIUM,PORCINE 5,000 UNIT/ML 1 ML VIAL SQ ONE; +HYDROmorphone 0.5 MG/0.5 ML SYRINGE IVP PRN; -HYDROmorphone 1 MG/ML 1 ML SYRINGE IVP PRN; +LACTATED RINGERS 1,000 ML IV SCH; +MIDAZOLAM 2 MG/2 ML VIAL IV PRN; -ceFAZolin 2 GM in SODIUM CHLORIDE 0.9% 100 ML IVPB ONE; +ceFAZolin IN SWFI 2 GM/20 ML SYRINGE IVP ONE; -fentaNYL (PF) 50 MCG/ML 2 ML AMP IV PRN
[2018-09-04] MEDS: ONDANSETRON 4 MG/2 ML VIAL IVP ONE ×2 (07:37→10:12)
[2018-09-04] MEDS ORDERED: LIDOCAINE 1% 20 ML VIAL (10MG/ML) FOR IV START INTRADERMA ONE (07:38)
[2018-09-04] MEDS ORDERED: MIDAZOLAM 2 MG/2 ML VIAL IV ONE (07:46)
--- NOTE | 2018-09-04 07:50 | P.GSHP ---
History of Present Illness H&P Date: 09/04/18 Chief Complaint: Incisional hernia The 53-year-old female who has developed an incisional hernia related to a Pfannenstiel incision. Patient presents today for laparoscopic robotic system repair. Patient has an incisional hernia located at the superior portion of her Pfannenstiel incision near the umbilicus. Past Medical History Past Medical History: Musculoskeletal Disorder Additional Past Medical History / Comment(s): MURMUR, HAD CHICKEN POX AT AGE 26 History of Any Multi-Drug Resistant Organisms: None Reported Past Surgical History: Back Surgery, Section, Uterine Ablation Additional Past Surgical History / Comment(s): oophorectomy, back surg. x 2, 5- 23-16 REVISON LAMINECTOMY/DECOMPRESSION L5-S1, LT KNEE SX Past Anesthesia/Blood Transfusion Reactions: Motion Sickness Smoking Status: Never smoker - Past Family History Mother Family Medical History: CVA/TIA, Diabetes Mellitus Father History Unknown: Yes Medications and Allergies Home Medications Medication Instructions Recorded Confirmed Type HYDROcodone/APAP 10-325MG [[place] 1 tab PO Q6H PRN 06/27/17 09/04/18 History 10-325] Ibuprofen 800 mg PO TID PRN 09/04/18 09/04/18 History Allergies Allergy/AdvReac Type Severity Reaction Status Date / Time diclofenac Allergy Severe GI Verified 09/04/18 07:09 upset Surgical - Exam Vital Signs Temp Pulse Resp BP Pulse Ox 97.8 F 78 16 138/73 97 09/04/18 07:33 09/04/18 07:33 09/04/18 07:33 09/04/18 07:33 09/04/18 07:33 - General well developed, no distress - Eyes PERRL - ENT normal pinna - Neck no masses - Respiratory normal expansion - Cardiovascular Rhythm: regular - Abdomen 4 cm incision hernia located superior portion of fat and still incision near her umbilicus. Abdomen: soft, non tender Assessment and Plan Assessment: Social hernia. We'll perform laparoscopic robotic-assisted repair.
[2018-09-04] MEDS ORDERED: MIDAZOLAM 2 MG/2 ML VIAL ONE (08:16)
[2018-09-04] MEDS ORDERED: LIDOCAINE 1% INJ 10MG/ML (20 ML MDV) ONE (08:16)
[2018-09-04] MEDS ORDERED: GLYCOPYRROLATE 0.2 MG/ML 2 ML VIAL ONE (08:16)
[2018-09-04] MEDS ORDERED: NEOSTIGMINE 1 MG/ML 10 ML VIAL ONE (08:16)
[2018-09-04] MEDS ORDERED: ROPIVACAINE 5 MG/ML 30 ML VIAL ONE (08:16)
[2018-09-04] MEDS ORDERED: PROPOFOL 10 MG/ML 20 ML VIAL IV ONE (08:16)
[2018-09-04] MEDS ORDERED: ROCURONIUM BROMIDE 10 MG/ML 10 ML VIAL IV ONE (08:16)
[2018-09-04] MEDS ORDERED: fentaNYL (PF) 50 MCG/ML 2 ML AMP ONE (08:16)
[2018-09-04] MEDS ORDERED: SUCCINYLCHOLINE CHLORIDE 100 MG/5 ML SYR IV ONE (08:16)
[2018-09-04] MEDS ORDERED: BUPIVACAIN-EPI 0.25%-1:200,000 30 ML VIAL SQ ONE (08:47)
[2018-09-04] MEDS ORDERED: LACTATED RINGERS 1,000 ML IV ONE (09:25)
--- NOTE | 2018-09-04 09:41 | P.ONQ ---
Anesthesiology Proc Note - PNB - Peripheral Nerve Block Performed Bilateral Transversus Abdominis Time Out Performed: Yes Procedure Start Time: 07:45 Procedure Stop Time: 07:55 Indication: Acute Post-Operative Pain, Requested by physician Sedation Type: Awake Preparation: Sterile Prep Position: Supine Catheter: None Needle Types: On-Q Needle Size: 100mm (4") Needle Gauge: 21 Technique: Ultrasound Injectate: Other (see comment) (0.325% ropivacaine 20cc each side) Blood Aspirated: No Pain Paresthesia on Injection Noted: No Resistance on Injection: Normal Events: Uneventful and Well Tolerated
[2018-09-04 09:50] VITALS: TEMP 96.9
--- NOTE | 2018-09-04 09:58 | P.OP ---
Date of Procedure: 09/04/18 Preoperative Diagnosis: Incisional hernia Postoperative Diagnosis: Incisional hernia Incarcerated fat/omentum Procedure(s) Performed: Laparoscopic robotic repair of incarcerated incisional hernia Partial omentectomy Anesthesia: ANA LUISA Surgeon: Lawrence Dubose Estimated Blood Loss (ml): 5 Pathology: other (Incarcerated fat/omentum) Condition: stable Disposition: PACU Description of Procedure: TThe patient was placed on the operating table in the supine position. He received general anesthesia. His abdomen was prepped and draped usual fashion. Using a 5 mm optical trocar under direct visualization the peritoneal cavity was entered in the left upper quadrant. The abdomen was then insufflated. The laparoscope was placed back into the perineal cavity. Next a 8 mm robotic trocar was placed in the left lower quadrant and a 12 mm robotic trocar was placed in the left lateral position. The original 5 mm trocar was exchanged for a 8 mm robotic trocar. The patient's placed in the left side up position. And the patient was docked to the robot. The incisional hernia was visualized. Using hook cautery the peritoneum over the incisional hernia was excised. The incarcerated fat/omentum was excised. The fascial opening was repaired using 0V LOC suture. Next a piece of 11 cm round ventral light ST mesh was placed into the. Cavity and secured with 2 OV lock suture. The patient was undocked the robot. The needles were retrieved. The incarcerated fat omentum was retrieved. The fascia of the 12 mm trocar site was closed with 0 Ethibond suture. Skin was closed interrupted 3-0 Monocryl suture. Dermabond dressings was applied. Patient tolerated procedure well and was sent to recovery room stable condition.
[2018-09-04] MEDS ORDERED: diphenhydrAMINE 50 MG/ML 1 ML VIAL IVP PRN (10:14)
[2018-09-04] MEDS ORDERED: HYDROcodone/APAP 7.5-325MG 1 EACH TAB PO ONE (11:13)
[2018-09-04 11:15] VITALS: RESP 18
[2018-09-04 11:46] VITALS: BP 98/66; PULSE 74
== END 2018-09-04 12:20 | disposition home or self-care (01) ==
LOC: OR 06:40
PROVIDERS: ATTEND Surgery
DX: K43.2 Incisional hernia without obstruction or gangrene (principal); R01.1 Cardiac murmur, unspecified; M79.601 Pain in right arm; R53.1 Weakness; Z88.6 Allergy status to analgesic agent
CPT/HCPCS: 64488; 88302; 49655; C1781; J2250; J1200; J1644; J1100; J2710; J2405; J2001; J3010; J2795; J0330; J2704; J0690; 86850; 86900; 86901

== ENCOUNTER 2018-09-05 01:34 | Observation (INO) | payer OTHER ==
[2018-09-05] MEDS ORDERED: ONDANSETRON 4 MG/2 ML VIAL IVP STA (02:00)
[2018-09-05] MEDS ORDERED: MORPHINE SULFATE 4 MG/ML SYRINGE IV STA (02:00)
--- NOTE | 2018-09-05 02:06 | ED ---
Abdominal Pain HPI - General Chief Complaint: Abdominal Pain Stated Complaint: Abdominal Pain, post op Time Seen by Provider: 09/05/18 01:35 Source: patient, family Mode of arrival: wheelchair Limitations: no limitations - History of Present Illness Initial Comments: This patient's 53-year-old woman who presents with abdominal pain. She states that she had undergone a laparoscopic hernia repair yesterday by Dr. Dubose. She had gone home same day and then the pain had been getting steadily worse over the course of tonight. She indicates the pain being diffuse, it is aching , and severe intensity. It has become constant. She has not noted worsening or relieving factors. She also has had some nausea. MD Complaint: abdominal pain -: hour(s) Location: diffuse Radiation: none Severity: severe Quality: aching Consistency: constant Improves With: nothing Worsens With: nothing Associated Symptoms: nausea - Related Data Home Medications Medication Instructions Recorded Confirmed Ibuprofen 800 mg PO TID PRN 09/04/18 09/05/18 Previous Rx's Medication Instructions Recorded Docusate [Colace] 100 mg PO BID #20 capsule 09/04/18 HYDROcodone/APAP 7.5-325MG [[place] 1 tab PO Q4H PRN 3 Days #18 tab 09/04/18 7.5-325] Psyllium [place] 100% [Metamucil 6 gm PO DAILY packet 09/05/18 Packet] Allergies Allergy/AdvReac Type Severity Reaction Status Date / Time diclofenac Allergy Severe GI Verified 09/05/18 07:39 upset Review of Systems ROS Statement: Those systems with pertinent positive or pertinent negative responses have been documented in the HPI. ROS Other: All systems not noted in ROS Statement are negative. Constitutional: Denies: fever, chills Respiratory: Denies: cough, dyspnea Cardiovascular: Denies: chest pain, palpitations, edema Gastrointestinal: Reports: abdominal pain, nausea. Denies: vomiting, diarrhea, melena, hematochezia Genitourinary: Denies: dysuria, hematuria Musculoskeletal: Denies: back pain Skin: Denies: rash Neurological: Denies: headache, weakness, numbness Past Medical History Past Medical History: Musculoskeletal Disorder Additional Past Medical History / Comment(s): MURMUR, HAD CHICKEN POX AT AGE 26 History of Any Multi-Drug Resistant Organisms: None Reported Past Surgical History: Back Surgery, Section, Hernia Repair, Uterine Ablation Additional Past Surgical History / Comment(s): oophorectomy, back surg. x 2, 5- 23-16 REVISON LAMINECTOMY/DECOMPRESSION L5-S1, LT KNEE SX Past Anesthesia/Blood Transfusion Reactions: Motion Sickness Past Psychological History: No Psychological Hx Reported Smoking Status: Never smoker Past Alcohol Use History: None Reported Past Drug Use History: None Reported - Past Family History Mother Family Medical History: CVA/TIA, Diabetes Mellitus Father History Unknown: Yes General Exam Limitations: no limitations General appearance: alert, in no apparent distress Head exam: Present: atraumatic, normocephalic Eye exam: Present: normal appearance. Absent: scleral icterus, conjunctival injection ENT exam: Present: normal oropharynx Neck exam: Present: normal inspection Respiratory exam: Present: normal lung sounds bilaterally. Absent: respiratory distress, wheezes, rales, rhonchi, stridor Cardiovascular Exam: Present: regular rate, normal rhythm, normal heart sounds. Absent: systolic murmur, diastolic murmur, rubs, gallop GI/Abdominal exam: Present: soft, tenderness (Mild diffuse tenderness without rebound or guarding), hypoactive bowel sounds. Absent: distended, guarding, rebound, rigid, organomegaly, mass, pulsatile mass, hernia Extremities exam: Present: normal inspection, normal capillary refill. Absent: pedal edema, calf tenderness Back exam: Present: normal inspection. Absent: CVA tenderness (R), CVA tenderness (L) Neurological exam: Present: alert Skin exam: Present: warm, dry, intact, normal color. Absent: rash, cyanosis, diaphoretic, erythema, pallor, mottled Course Vital Signs 09/05/18 09/05/18 09/05/18 01:35 02:13 02:20 Temperature 98.1 F Pulse Rate 62 Respiratory 18 Rate Blood Pressure 129/74 O2 Sat by Pulse 98 100 96 Oximetry 09/05/18 09/05/18 09/05/18 02:30 03:10 03:30 Temperature Pulse Rate Respiratory 14 Rate Blood Pressure 108/66 128/70 O2 Sat by Pulse 96 100 96 Oximetry 09/05/18 09/05/18 09/05/18 03:40 03:50 04:00 Temperature Pulse Rate Respiratory Rate Blood Pressure 110/62 110/62 110/62 O2 Sat by Pulse 98 96 98 Oximetry 09/05/18 09/05/18 09/05/18 04:10 04:20 04:30 Temperature Pulse Rate Respiratory Rate Blood Pressure 106/65 106/65 106/65 O2 Sat by Pulse 95 100 Oximetry 09/05/18 09/05/18 09/05/18 04:40 04:50 05:00 Temperature 98.3 F Pulse Rate Respiratory Rate Blood Pressure 143/88 143/88 143/88 O2 Sat by Pulse 96 95 94 L Oximetry 09/05/18 09/05/18 09/05/18 05:10 05:20 05:30 Temperature Pulse Rate Respiratory Rate Blood Pressure 124/70 124/70 124/70 O2 Sat by Pulse 95 95 93 L Oximetry 09/05/18 05:40 Temperature Pulse Rate Respiratory Rate Blood Pressure 121/70 O2 Sat by Pulse 94 L Oximetry Medical Decision Making - Medical Decision Making Patient is a 53-year-old woman complaining of abdominal pain, and status post surgery. She did not have significant relief with analgesics here. The case is discussed with Dr. Lyons who is covering [facility], and patient will be admitted. At this point the patient does not appear to have a surgical condition. - Lab Data Result diagrams: 09/05/18 01:55 09/05/18 01:55 Lab Results 09/05/18 09/05/18 09/05/18 Range/Units 01:55 01:55 03:12 WBC 12.6 H (3.8-10.6) k/uL RBC 4.15 (3.80-5.40) m/uL Hgb 12.3 (11.4-16.0) gm/dL Hct 38.8 (34.0-46.0) % MCV 93.4 (80.0-100.0) fL MCH 29.6 (25.0-35.0) pg MCHC 31.7 (31.0-37.0) g/dL RDW 13.8 (11.5-15.5) % Plt Count 392 (150-450) k/uL Neutrophils % 81 % Lymphocytes % 11 % Monocytes % 6 % Eosinophils % 1 % Basophils % 0 % Neutrophils # 10.2 H (1.3-7.7) k/uL Lymphocytes # 1.4 (1.0-4.8) k/uL Monocytes # 0.7 (0-1.0) k/uL Eosinophils # 0.1 (0-0.7) k/uL Basophils # 0.0 (0-0.2) k/uL Sodium 139 (137-145) mmol/L Potassium 4.7 (3.5-5.1) mmol/L Chloride 107 (98-107) mmol/L Carbon Dioxide 25 (22-30) mmol/L Anion Gap 7 mmol/L BUN 11 (7-17) mg/dL Creatinine 0.66 (0.52-1.04) mg/dL Est GFR (CKD-EPI)AfAm >90 (>60 ml/min/1.73 sqM) Est GFR (CKD-EPI)NonAf >90 (>60 ml/min/1.73 sqM) Glucose 96 (74-99) mg/dL Calcium 10.1 (8.4-10.2) mg/dL Total Bilirubin 0.8 (0.2-1.3) mg/dL AST 42 H (14-36) U/L ALT 51 (9-52) U/L Alkaline Phosphatase 67 (38-126) U/L Total Protein 7.2 (6.3-8.2) g/dL Albumin 4.3 (3.5-5.0) g/dL Amylase 57 (30-110) U/L Lipase 68 (23-300) U/L Urine Color Light Yellow Urine Appearance Clear (Clear) Urine pH 6.0 (5.0-8.0) Ur Specific [place] 1.007 (1.001-1.035) Urine Protein Negative (Negative) Urine Glucose (UA) Negative (Negative) Urine Ketones Trace H (Negative) Urine Blood Negative (Negative) Urine Nitrite Negative (Negative) Urine Bilirubin Negative (Negative) Urine Urobilinogen <2.0 (<2.0) mg/dL Ur Leukocyte Esterase Negative (Negative) - EKG Data -: EKG Interpreted by Md EKG shows normal: sinus rhythm, axis (Normal), intervals (Normal), QRS complexes (Normal), ST-T waves (Normal) Rate: bradycardia (Rate 59 bpm) Interpretation: normal EKG Disposition Clinical Impression: Abdominal pain Disposition: ADMITTED IP TO THIS [facility] Condition: Fair
[2018-09-05] MEDS ORDERED: HYDROmorphone 1 MG/ML 1 ML SYRINGE IVP STA ×3 (02:31→04:21)
[2018-09-05 02:34] LABS: Basophils % (A) 0 %; Eosinophils # (A) 0.1 k/uL (0-0.7); Eosinophils % (A) 1 %; HCT 38.8 % (34.0-46.0); HGB 12.3 gm/dL (11.4-16.0); Lymphocytes # (A) 1.4 k/uL (1.0-4.8); Lymphocytes % (A) 11 %; MCH 29.6 pg (25.0-35.0); MCHC 31.7 g/dL (31.0-37.0); MCV 93.4 fL (80.0-100.0); Mean Platelet Volume 7.6; Monocytes # (A) 0.7 k/uL (0-1.0); Monocytes % (A) 6 %; Neutrophils # (A) 10.2 k/uL (1.3-7.7); Neutrophils % (A) 81 %; Platelet Count 392 k/uL (150-450); RBC 4.15 m/uL (3.80-5.40); RDW 13.8 % (11.5-15.5); WBC 12.6 k/uL (3.8-10.6)
[2018-09-05 02:38] LABS: ALT 51 U/L (9-52); AST 42 U/L (14-36); Albumin 4.3 g/dL (3.5-5.0); Alkaline Phosphatase 67 U/L (38-126); Amylase 57 U/L (30-110); Anion Gap 7 mmol/L; Blood Urea Nitrogen 11 mg/dL (7-17); Calcium 10.1 mg/dL (8.4-10.2); Carbon Dioxide 25 mmol/L (22-30); Chloride 107 mmol/L (98-107); Glucose 96 mg/dL (74-99); Lipase 68 U/L (23-300); Potassium 4.7 mmol/L (3.5-5.1); Sodium 139 mmol/L (137-145); Total Bilirubin 0.8 mg/dL (0.2-1.3); Total Protein 7.2 g/dL (6.3-8.2)
[2018-09-05 03:35] LABS: Appearance,Urine Clear (Clear); Bilirubin,Urine Negative (Negative); Blood,Urine Negative (Negative); Color,Urine Light Yellow; Glucose,Urine (UA) Negative (Negative); Ketones,Urine Trace (Negative); Leukocyte Esterase,Urine Negative (Negative); Nitrite,Urine Negative (Negative); Protein,Urine Negative (Negative); Specific Gravity,Urine 1.007 (1.001-1.035); Urobilinogen,Urine <2.0 mg/dL (<2.0)
--- NOTE | 2018-09-05 04:50 | XR ---
EXAM: XR Abdomen, 2 Views CLINICAL HISTORY: ITS.REASON XR Reason: Pain TECHNIQUE: Frontal view of the abdomen/pelvis with upright view of the abdomen. COMPARISON: No relevant prior studies available. FINDINGS: Lower thorax: Mild retrocardiac opacity in the left lower lung which could be related atelectasis though nonspecific. Intraperitoneal space: No visualized free air. Gastrointestinal tract: There is a moderately prominent stool burden throughout the colon with intermittent air distention. Multiple air distended loops of central small bowel are also noted, limitedly characterized with mild dilation of the 3.6 cm. Bones/joints: Posterior fusion changes at L5-S1. Degenerative change at the hips with mild joint space loss and osteophytosis. IMPRESSION: 1. Moderately prominent stool burden within the colon with intermittent air distention. Mild small bowel dilation centrally. Ileus or distal obstruction are considerations. No visualized free air. 2. Left lower lobe airspace opacity which may be related to atelectasis though mild infiltrate could have similar appearance.
[2018-09-05] MEDS ORDERED: ONDANSETRON 4 MG/2 ML VIAL IVP PRN (05:09)
[2018-09-05] MEDS ORDERED: ACETAMINOPHEN TAB 325 MG TAB PO PRN (05:09)
[2018-09-05] MEDS ORDERED: HYDROmorphone 1 MG/ML 1 ML SYRINGE IVP PRN (05:09)
[2018-09-05] MEDS ORDERED: HYDROcodone/APAP 5-325MG 1 EACH TAB PO PRN (05:09)
[2018-09-05] MEDS ORDERED: NALOXONE 0.4 MG/ML 1 ML VIAL IV PRN (05:09)
[2018-09-05] MEDS ORDERED: SODIUM CHLORIDE 0.9% 1,000 ML IV SCH (05:15)
[2018-09-05 06:10] VITALS: BMI 30.9
[2018-09-05 08:45] VITALS: BP 117/74; PULSE 67; RESP 16; TEMP 98.4
[2018-09-05] MEDS ORDERED: DOCUSATE 100 MG CAP PO SCH (09:00)
[2018-09-05] MEDS ORDERED: FAMOTIDINE 20 MG TAB PO SCH (09:00)
[2018-09-05] MEDS ORDERED: IBUPROFEN 800 MG TAB PO PRN (09:40)
[2018-09-05] MEDS ORDERED: HYDROcodone/APAP 10-325MG 1 EACH TAB PO ONE ×2 (09:44→13:44)
--- NOTE | 2018-09-05 10:09 | P.GSHP ---
History of Present Illness H&P Date: 09/05/18 Chief Complaint: Abdominal pain Is a 53-year-old female who is status post robotic-assisted repair of incisional hernia. Patient presented back to the emergency room due to complaints of abdominal pain. Patient was admitted for IV analgesia. She states her pain is better this morning. Past Medical History Past Medical History: Musculoskeletal Disorder Additional Past Medical History / Comment(s): MURMUR, HAD CHICKEN POX AT AGE 26 History of Any Multi-Drug Resistant Organisms: None Reported Past Surgical History: Back Surgery, Section, Hernia Repair, Uterine Ablation Additional Past Surgical History / Comment(s): oophorectomy, back surg. x 2, 5- 23-16 REVISON LAMINECTOMY/DECOMPRESSION L5-S1, LT KNEE SX Past Anesthesia/Blood Transfusion Reactions: Motion Sickness Past Psychological History: No Psychological Hx Reported Smoking Status: Never smoker Past Alcohol Use History: None Reported Past Drug Use History: None Reported - Past Family History Mother Family Medical History: CVA/TIA, Diabetes Mellitus Father History Unknown: Yes Medications and Allergies Home Medications Medication Instructions Recorded Confirmed Type Docusate [Colace] 100 mg PO BID #20 capsule 09/04/18 09/05/18 Rx HYDROcodone/APAP 7.5-325MG [[place] 1 tab PO Q4H PRN 3 Days #18 tab 09/04/1809/05 Rx 7.5-325] Ibuprofen 800 mg PO TID PRN 09/04/18 09/05/18 History Psyllium Husk 100% [Metamucil 6 gm PO DAILY packet 09/05/18 Rx Packet] Allergies Allergy/AdvReac Type Severity Reaction Status Date / Time diclofenac Allergy Severe GI Verified 09/05/18 07:39 upset Surgical - Exam Vital Signs Temp Pulse Resp BP Pulse Ox 98.1 F 62 18 129/74 98 09/05/18 01:35 09/05/18 01:35 09/05/18 01:35 09/05/18 01:35 09/05/18 01:35 - General well developed, well nourished, no distress - Eyes PERRL - ENT normal pinna - Neck no masses - Respiratory normal expansion - Cardiovascular Rhythm: regular - Abdomen Abdomen: soft, non tender Results - Labs 09/05/18 01:55 09/05/18 01:55 Abnormal Lab Results - Last 24 Hours (Table) 09/05/18 09/05/18 09/05/18 Range/Units 01:55 01:55 03:12 WBC 12.6 H (3.8-10.6) k/uL Neutrophils # 10.2 H (1.3-7.7) k/uL AST 42 H (14-36) U/L Urine Ketones Trace H (Negative) Diabetes panel 09/05/18 Range/Units 01:55 Sodium 139 (137-145) mmol/L Potassium 4.7 (3.5-5.1) mmol/L Chloride 107 (98-107) mmol/L Carbon Dioxide 25 (22-30) mmol/L BUN 11 (7-17) mg/dL Creatinine 0.66 (0.52-1.04) mg/dL Glucose 96 (74-99) mg/dL Calcium 10.1 (8.4-10.2) mg/dL AST 42 H (14-36) U/L ALT 51 (9-52) U/L Alkaline Phosphatase 67 (38-126) U/L Total Protein 7.2 (6.3-8.2) g/dL Albumin 4.3 (3.5-5.0) g/dL Calcium panel 09/05/18 Range/Units 01:55 Calcium 10.1 (8.4-10.2) mg/dL Albumin 4.3 (3.5-5.0) g/dL Pituitary panel 09/05/18 Range/Units 01:55 Sodium 139 (137-145) mmol/L Potassium 4.7 (3.5-5.1) mmol/L Chloride 107 (98-107) mmol/L Carbon Dioxide 25 (22-30) mmol/L BUN 11 (7-17) mg/dL Creatinine 0.66 (0.52-1.04) mg/dL Glucose 96 (74-99) mg/dL Calcium 10.1 (8.4-10.2) mg/dL Adrenal panel 09/05/18 Range/Units 01:55 Sodium 139 (137-145) mmol/L Potassium 4.7 (3.5-5.1) mmol/L Chloride 107 (98-107) mmol/L Carbon Dioxide 25 (22-30) mmol/L BUN 11 (7-17) mg/dL Creatinine 0.66 (0.52-1.04) mg/dL Glucose 96 (74-99) mg/dL Calcium 10.1 (8.4-10.2) mg/dL Total Bilirubin 0.8 (0.2-1.3) mg/dL AST 42 H (14-36) U/L ALT 51 (9-52) U/L Alkaline Phosphatase 67 (38-126) U/L Total Protein 7.2 (6.3-8.2) g/dL Albumin 4.3 (3.5-5.0) g/dL Assessment and Plan Assessment: There is post robotic-assisted repair of incisional hernia. Patient's abdominal pain is due to postop incisional pain. Patient will have abdominal binder place today. She'll be discharged home later today.
--- NOTE | 2018-09-05 10:11 | P.DS ---
Providers Date of admission: 09/05/18 05:16 Expected date of discharge: 09/05/18 Attending physician: Lawrence Dubose Primary care physician: Marbella Dee Hospital Course: The 53 female who was readmitted to the hospital for postoperative pain. Patient received IV analgesia. Please hospital chart for details. Plan - Discharge Summary Discharge Rx Participant: Yes New Discharge Prescriptions: New Psyllium Husk 100% [Metamucil Packet] 6 gm PO DAILY packet Continue Ibuprofen 800 mg PO TID PRN PRN Reason: Mild Pain Docusate [Colace] 100 mg PO BID #20 capsule HYDROcodone/APAP 7.5-325MG [[place] 7.5-325] 1 tab PO Q4H PRN 3 Days #18 tab PRN Reason: Pain Discharge Medication List Docusate [Colace] 100 mg PO BID #20 capsule 09/04/18 [Rx] HYDROcodone/APAP 7.5-325MG [[place] 7.5-325] 1 tab PO Q4H PRN 3 Days #18 tab 09/04 [Rx] Ibuprofen 800 mg PO TID PRN 09/04/18 [History] Psyllium Husk 100% [Metamucil Packet] 6 gm PO DAILY packet 09/05/18 [Rx] Follow up Appointment(s)/Referral(s): Marbella Dee DO [Primary Care Provider] - 1-2 days (CALL OFFICE TO SCHEDULE APPOINTMENT, OFFICE CLOSED AT TIME OF DISCHARGE.) Lawrence Dubose MD [STAFF PHYSICIAN] - 1 Week (FOLLOW UP AT PREVIOUSLY SCHEDULED POST OP VISIT.) Patient Instructions/Handouts: Laparoscopic Herniorrhaphy (DC), Acute Abdominal Pain (DC)
[2018-09-06] MEDS ORDERED: PSYLLIUM HUSK 100% 6 GM PACKET PO SCH (09:00)
== END 2018-09-05 13:35 | disposition home or self-care (01) ==
LOC: EC 01:34 → 4SSUR 05:16
PROVIDERS: ADMIT Surgery; ATTEND Surgery
DX: G89.18 Other acute postprocedural pain (principal); R10.9 Unspecified abdominal pain; Z98.890 Other specified postprocedural states; R11.0 Nausea; Z88.6 Allergy status to analgesic agent; R01.1 Cardiac murmur, unspecified; Z82.3 Family history of stroke; Z83.3 Family history of diabetes mellitus
CPT/HCPCS: 99285 ×2; 96375 ×2; 96376 ×3; 96374 ×2; 36415; 80053; 82150; 83690; 85025; 81003; 74018; G0378; J2270; J2405; J1170

== ENCOUNTER → 2018-09-25 | Outpatient (CLI) | payer OTHER ==
--- NOTE | 2018-09-25 15:57 | CT ---
EXAMINATION TYPE: CT abdomen pelvis w con DATE OF EXAM: 09/25/2018 HISTORY: LLQ pain post hernia repair [address] DLP: 916.9mGycm Automated Exposure Control for Dose Reduction was Utilized. CONTRAST: CT scan of the abdomen and pelvis is performed with IV Contrast, patient injected with 100 mL of Isov ue 300. COMPARISON: Pelvic ultrasound dated 08/08/[address] abdomen dated 08/11/2018 FINDINGS: LUNG BASES: Focal cylindrical bronchiectasis is seen of the right middle lobe. Minimal bibasilar subs egmental dependent atelectasis is also seen. Left basilar lateral pleural parenchymal scarring is not ed.. LIVER/GB: Mild coarsened heterogenous echotexture of the hepatic parenchyma, which most commonly magdalene esponds to hepatic steatosis and limits evaluation for underlying hepatic masses. More focal probable fatty infiltration is seen in a typical location surrounding the fissure for the falciform ligament. No cholelithiasis. PANCREAS: No significant abnormality is seen. SPLEEN: No significant abnormality is seen. ADRENALS: No significant abnormality is seen. KIDNEYS: There is a lobulated contour of both kidneys. Kidneys enhance symmetrically. BOWEL: The sigmoid colon is redundant with pericolonic calcifications in the right lower quadrant lar ge degree of retained colonic stool within the transverse colon, proximal descending colon and throug hout the ascending colon severely limit evaluation. However there is circumferential thickening of th e cecum such as on axial image 54 measuring up to 1.7 cm for which colonoscopy is recommended.. UTERUS/ADNEXA: Uterus is diffusely heterogenous. LYMPH NODES: No greater than 1cm abdominal or pelvic lymph nodes are appreciated. OSSEOUS STRUCTURES: Postsurgical changes of the lumbosacral spine are noted. Bilateral femoral acetab ular arthropathy is mild to moderate. Probable bone island is noted within the right femoral head. OTHER: Minimal diastases recti remains. No subcutaneous fluid collection to suggest postoperative abs cess is seen. IMPRESSION: 1. There is a large amount retained colonic stool limiting evaluation of the colon however there appe ars to be circumferential colonic wall thickening that could relate to retained colonic debris or col onic mass. This could be further evaluated with colonoscopy. 2. Diffuse heterogeneity of the uterus for which further evaluation with pelvic ultrasound could be p erformed. Leiomyomas were seen on the prior pelvic ultrasound of 08/08/2017. Reevaluation is recommen ded. 3. Hepatic steatosis.
== END | disposition home or self-care (01) ==
LOC: RADCTMAIN 11:07
PROVIDERS: ATTEND Physician Assistant
DX: K59.09 Other constipation (principal); K76.0 Fatty (change of) liver, not elsewhere classified
CPT/HCPCS: 74177; Q9967

== ENCOUNTER 2018-09-26 21:09 | Emergency (ER) | payer OTHER ==
[2018-09-26] MEDS ORDERED: SODIUM CHLORIDE 0.9% 1,000 ML BAG ONE (23:00)
[2018-09-27 02:46] LABS: Albumin 4.2 g/dL (3.5-5.0); Calcium 10.5 mg/dL (8.4-10.2); Potassium 4.4 mmol/L (3.5-5.1); Total Bilirubin 0.9 mg/dL (0.2-1.3); Total Protein 7.2 g/dL (6.3-8.2)
[2018-09-27 02:47] LABS: Basophils # (A) 0.1 k/uL (0-0.2); Basophils % (A) 1 %; Eosinophils # (A) 0.1 k/uL (0-0.7); Eosinophils % (A) 1 %; HCT 40.7 % (34.0-46.0); HGB 13.3 gm/dL (11.4-16.0); Lymphocytes # (A) 1.2 k/uL (1.0-4.8); Lymphocytes % (A) 11 %; MCH 29.7 pg (25.0-35.0); MCHC 32.6 g/dL (31.0-37.0); MCV 91.2 fL (80.0-100.0); Monocytes # (A) 0.8 k/uL (0-1.0); Monocytes % (A) 8 %; Neutrophils # (A) 8.2 k/uL (1.3-7.7); Neutrophils % (A) 79 %; Platelet Count 373 k/uL (150-450); RBC 4.47 m/uL (3.80-5.40); RDW 13.7 % (11.5-15.5); WBC 10.4 k/uL (3.8-10.6)
[2018-09-27 02:55] LABS: Bacteria,Urine Rare /hpf; Mucus,Urine Rare /hpf; RBC,Urine 1 /hpf (0-5); Squamous Epithelial Cell,Urine 1 /hpf (0-4); WBC,Urine 8 /hpf (0-5)
[2018-09-27 03:01] LABS: Appearance,Urine Clear (Clear); Bilirubin,Urine Negative (Negative); Blood,Urine Negative (Negative); Color,Urine Light Yellow; Glucose,Urine (UA) Negative (Negative); Ketones,Urine Trace (Negative); Leukocyte Esterase,Urine Small (Negative); Nitrite,Urine Negative (Negative); PH, Urine 5.5 (5.0-8.0); Protein,Urine Negative (Negative); Specific Gravity,Urine 1.009 (1.001-1.035); Urobilinogen,Urine <2.0 mg/dL (<2.0)
--- NOTE | 2018-09-27 10:07 | CT ---
EXAM: CT Abdomen and Pelvis With Intravenous Contrast CLINICAL HISTORY: Hernia repair [id number]/100ML IV ONLY GIVEN AND 0 ML WASTED TECHNIQUE: Axial computed tomography images of the abdomen and pelvis with intravenous contrast. CTDI is 10.5, 9.9 mGy and DLP is 903.9 mGy-cm. This CT exam was performed using one or more of the following dose reduction techniques: automated exposure control, adjustment of the mA and/or kV according to patient size, and/or use of iterative reconstruction technique. COMPARISON: CT abdomen and pelvis dated 08/11/2018 FINDINGS: Lung bases: Bibasilar atelectasis. ABDOMEN: Liver: Unremarkable. Gallbladder and bile ducts: Unremarkable. Pancreas: Unremarkable. Spleen: Unremarkable. Adrenals: Unremarkable. Kidneys and ureters: Unremarkable. Stomach and bowel: Unremarkable. PELVIS: Appendix: Appendix is unremarkable. Bladder: Unremarkable. Reproductive: Unremarkable as visualized. ABDOMEN and PELVIS: Intraperitoneal space: Unremarkable. Retroperitoneal space: Interval development of perirenal edema, which is nonspecific. Correlate with urinalysis to exclude an inflammatory or infectious process. Bones/joints: Post surgical changes within the spine. No acute fracture. No dislocation. Soft tissues: Status post repair of the previously seen umbilical hernia with minimal stranding and fluid. No evidence of abscess or soft tissue gas. Vasculature: Unremarkable. No abdominal aortic aneurysm. Lymph nodes: Unremarkable. IMPRESSION: 1. Status post repair of the previously seen umbilical hernia with minimal stranding and fluid. No evidence of abscess or soft tissue gas. 2. Interval development of perirenal edema, which is nonspecific. Correlate with urinalysis to exclude an inflammatory or infectious process.
== END 2018-09-27 07:25 | disposition home or self-care (01) ==
LOC: EC 21:09
DX: E86.0 Dehydration (principal); R10.9 Unspecified abdominal pain; R11.2 Nausea with vomiting, unspecified; N28.89 Other specified disorders of kidney and ureter; R50.9 Fever, unspecified; Z88.6 Allergy status to analgesic agent; Z98.890 Other specified postprocedural states
CPT/HCPCS: 99284; 96374; 96375 ×2; 96361; 36415; 80053; 82150; 83605; 83690; 85025; 81001; 87040; 87086; 74177; Q9967

== ENCOUNTER 2021-05-11 11:58 | Emergency (ER) | payer OTHER ==
--- NOTE | 2021-05-11 12:59 | ED ---
General Adult HPI - General Chief complaint: Abdominal Pain Stated complaint: abd pain Time Seen by Provider: 05/11/21 12:28 Source: patient Mode of arrival: ambulatory Limitations: no limitations - History of Present Illness Initial comments: Dictation was produced using [employer] dictation software. please excuse any grammatical, word or spelling errors. Chief Complaint: 55-year-old female presents to the emergency department for C- section scar pain History of Present Illness: She 55-year-old female she presents today with what 2 days of abdominal pain where her was. Patient states that she had a incisional hernia. 2018 patient had a hernia repair with mesh placement. She mentions that she is had an infection to that area in the past. The ROS documented in this emergency department record has been reviewed and confirmed by me. Those systems with pertinent positive or negative responses have been documented in the HPI. All other systems are other negative and/or noncontributory. PHYSICAL EXAM: General Impression: Alert and oriented x3, not in acute distress HEENT: Normocephalic atraumatic, extra-ocular movements intact, pupils equal and reactive to light bilaterally, mucous membranes moist. Cardiovascular: Heart regular rate and rhythm Chest: Able to complete full sentences, no retractions, no tachypnea Abdomen: abdomen soft, non-tender, non-distended, no organomegaly, sites clean, dry and intact. There is some erythema to the left lateral portion of the . No drainage, no induration. Slight bulging with Valsalva. Musculoskeletal: Pulses present and equal in all extremities, no peripheral edema Motor: no focal deficits noted Neurological: CN II-XII grossly intact, no focal motor or sensory deficits noted Skin: Intact with no visualized rashes Psych: Normal affect and mood ED course: 55-year-old female presents with scar pain.Abdominal ultrasound showed complex hypoechoic area measuring 4 x 1 x 3.5 cm. It aspiration was performed with retrieval of purulent fluid. Clinical presentation consistent with skin abscess. Patient is currently on Bactrim p rescribed by primary care doctor. Patient will be given prescription for Keflex. She is advised to clean the area with warm water twice daily. Advised follow-up with general surgeon in 5 days if her symptoms do not improve. - Related Data Home Medications Medication Instructions Recorded Confirmed Ibuprofen 800 mg PO TID PRN 09/04/18 09/05/18 Previous Rx's Medication Instructions Recorded Docusate [Colace] 100 mg PO BID #20 capsule 09/04/18 HYDROcodone/APAP 7.5-325MG [[place] 1 tab PO Q4H PRN 3 Days #18 tab 09/04/18 7.5-325] Psyllium Husk 100% [Metamucil 6 gm PO DAILY packet 09/05/18 Packet] Cephalexin [Keflex] 500 mg PO Q6HR 5 Days #20 cap 05/11/21 HYDROcodone/APAP 5-325MG [[place] 1 tab PO Q6HR PRN 3 Days #12 tab 05/11/21 5-325] Allergies Allergy/AdvReac Type Severity Reaction Status Date / Time diclofenac Allergy Severe GI Verified 05/11/21 12:17 upset Review of Systems ROS Statement: Those systems with pertinent positive or pertinent negative responses have been documented in the HPI. ROS Other: All systems not noted in ROS Statement are negative. Past Medical History Past Medical History: Musculoskeletal Disorder Additional Past Medical History / Comment(s): MURMUR, HAD CHICKEN POX AT AGE 26 History of Any Multi-Drug Resistant Organisms: None Reported Past Surgical History: Back Surgery, Section, Hernia Repair, Uterine Ablation Additional Past Surgical History / Comment(s): oophorectomy, back surg. x 2, 5-23-16 REVISON LAMINECTOMY/DECOMPRESSION L5-S1, LT KNEE SX Past Anesthesia/Blood Transfusion Reactions: Motion Sickness Past Psychological History: No Psychological Hx Reported Smoking Status: Never smoker Past Alcohol Use History: Occasional Past Drug Use History: None Reported - Past Family History Mother Family Medical History: CVA/TIA, Diabetes Mellitus Father History Unknown: Yes General Exam Limitations: no limitations Course Vital Signs 05/11/21 12:14 Temperature 98.2 F Pulse Rate 96 Respiratory 17 Rate Blood Pressure 135/83 O2 Sat by Pulse 98 Oximetry Procedures - Incision & Drainage Consent Obtained: verbal consent Site: abdomen Anesthetic Used: lidocaine 1%, with epi Amount (mLs): 1 I&D Cleaning Method: Alcohol Wipe Sterile Field Used?: Yes Needle Aspiration Performed?: Yes (1cc purulent fluid) I&D Drainage Obtained: Pus Culture Obtained?: No Patient Tolerated Procedure: well Disposition Clinical Impression: Abscess Disposition: HOME SELF-CARE Condition: Fair Instructions (If sedation given, give patient instructions): Abscess (ED) Additional Instructions: Wash area with warm water twice daily. It is advisable to also use warm compresses to the area to refrigeration mechanic helper in improvement of symptoms. Prescription sent to the pharmacy. Please follow-up with Dr. Dubose after 5 days if her symptoms do not improve. Prescriptions: Cephalexin [Keflex] 500 mg PO Q6HR 5 Days #20 cap HYDROcodone/APAP 5-325MG [[place] 5-325] 1 tab PO Q6HR PRN 3 Days #12 tab PRN Reason: Severe Pain Is patient prescribed a controlled substance at d/c from ED?: Yes If prescribed controlled substance>3 days was MAPS reviewed?: Prescribed <3 Days Referrals: Lawrence Dubose MD [STAFF PHYSICIAN] - 1-2 days
--- NOTE | 2021-05-11 13:48 | US ---
EXAMINATION TYPE: US abdomen limited DATE OF EXAM: 05/11/2021 COMPARISON: NONE CLINICAL HISTORY: left lateral scar. redness, tenderness left lateral scar, c-sec tion 1990 scanned left lateral scar, within area of concern, complex hypoechoic area superficially = 4.0 x 1.0 x 3.5cm IMPRESSION: Seroma versus infected collection at the site of clinical concern.
[2021-05-11] MEDS ORDERED: LIDOCAINE 1%-EPI 1:100,000 20 ML VIAL SQ STA (13:51)
[2021-05-11 14:31] VITALS: BP 130/74; PULSE 92; RESP 18; TEMP 98.4
== END 2021-05-11 14:31 | disposition home or self-care (01) ==
LOC: EC 11:58
DX: L02.211 Cutaneous abscess of abdominal wall (principal); Z98.891 History of uterine scar from previous surgery; Z88.6 Allergy status to analgesic agent
CPT/HCPCS: 10061; 76705; 99284